=== PATIENT | male | born 1940 | race Caucasian/White ===

== ENCOUNTER 2021-03-15 07:25 | Inpatient (IN) | payer OTHER ==
[~2021-03-15] VITALS: Ht 188 cm; Wt 119.0 kg
[2021-03-15] MEDS ORDERED: ONDANSETRON 2MG/ML, 2ML ONE (07:45)
[2021-03-15] MEDS ORDERED: ONDANSETRON 2MG/ML, 2ML IVPush ONE (08:00)
[2021-03-15] MEDS ORDERED: SODIUM CHLORIDE 0.9% 1,000ML IVBOLUS ONE (08:00)
[2021-03-15] MEDS ORDERED: SODIUM CHLORIDE FLUSH 10ML SYR IVF ONE (08:00)
--- NOTE | 2021-03-15 08:15 | NUR ---
PT PROVIDED PO FLUIDS. NAD NOTED. LABS DRAWN. IVF INFUSING PER EMAR. SIDE RAILS UP. CALL LIGHT IN REACH.
[2021-03-15 08:21] LABS: BASOPHILS % (AUTO) 1 % (0-1); EOSINOPHILS % (AUTO) 2 % (1-7); LYMPHOCYTES % (AUTO) 27 % (22-44); MEAN CORPUSCULAR HGB CONC 33.7 g/dL (33.2-36.2); MEAN PLATELET VOLUME 9.1 fL (7.4-10.4); MONOCYTES % (AUTO) 7 % (2-9); NEUTROPHILS % (AUTO) 63 % (42-75); PLATELET COUNT 160 x10^3/uL (130-400); RED BLOOD COUNT 5.06 x10^6/uL (4.38-5.82); RED CELL DISTRIBUTION WIDTH 19.3 % (9.4-14.8)
[2021-03-15 08:22] LABS: ANION GAP 10 mmol/L (5-15); CALCIUM 9.3 mg/dL (8.5-10.1); CHLORIDE 95 mmol/L (98-107); CREATININE 1.81 mg/dL (0.7-1.3)
[2021-03-15 08:23] LABS: ALANINE AMINOTRANSFERASE 18 U/L (12-78)
[2021-03-15 08:25] LABS: ALKALINE PHOSPHATASE 94 U/L (45-117); BILIRUBIN,TOTAL 0.5 mg/dL (0.2-1.0)
--- NOTE | 2021-03-15 09:00 | NUR ---
RECEIVED REPORT FROM VIVIAN KOTHARI. PT RESTING ON GURNEY. NOTED TO DESAT WHEN SLEEPING TO 79% RA. PT AWAKENED AND O2 SATS MONITORED. PT STAYED AT 80% RA. PLACED ON 2L NC SATING 100%. ERP DR. ZIMMERMAN NOTIFIED.
--- NOTE | 2021-03-15 09:47 | NUR ---
PT RESTING ON GURNEY. NADN. CRUZ.
--- NOTE | 2021-03-15 09:49 | NUR ---
PT AWARE OF NEED FOR UA. AFTER MULTIPLE ATTEMPTS PT CANNOT PROVIDE UA SAMPLE. PER STATES HE IS INCONTINENT AND HAS NO CONTROL OVER WHEN HE GOES. PT EDUCATED ON STRIAGHT CATH FOR URINE SAMPLE. PT STATES "I AIN'T GETTING NO DAMN CATHETER". URINAL REMAINS W/ PT.
[2021-03-15 09:53] LABS: ACETONE, SERUM Small (20mg/dL) (Negative)
--- NOTE | 2021-03-15 10:36 | NUR ---
PT RESTING ON ROCIO. ROHAN. VSS. UA PROVIDED. UA COLLECTED, LABELED, AND SENT TO LAB. [facility] AT BEDSIDE FOR ADMISSION.
[2021-03-15 10:39] LABS: TROPONIN I < 0.015 ng/mL (0.000-0.045)
[2021-03-15 10:41] LABS: INTERNATIONAL NORMALIZED RATIO 1.05 (0.93-1.1); PROTHROMBIN TIME 11.2 Seconds (9.6-11.5)
[2021-03-15 10:44] LABS: MICROSCOPIC INDICATED
[2021-03-15] MEDS ORDERED: INSULIN LISPRO 100 UNITS/ML, PEN SQ-INSULIN SCH ×2 (11:00→21:00)
[2021-03-15] MEDS ORDERED: hydrALAzine 20 MG/ML, 1ML IVPush PRN (11:00)
[2021-03-15] MEDS ORDERED: LABETALOL 5MG/ML, 20ML IVPush PRN (11:00)
[2021-03-15] MEDS ORDERED: POLYETHYLENE GLYCOL 17 GM PACKET PO PRN (11:00)
[2021-03-15] MEDS ORDERED: ONDANSETRON ODT 4 MG PO PRN (11:00)
[2021-03-15] MEDS ORDERED: DOCUSATE 100 MG CAPSULE PO PRN (11:00)
[2021-03-15] MEDS ORDERED: DEXTROSE 4 GM TAB.CHEW PO PRN (11:00)
[2021-03-15] MEDS ORDERED: ONDANSETRON 2MG/ML, 2ML IVPush PRN (11:00)
[2021-03-15] MEDS ORDERED: morphine SULFATE 10 MG/ML, 1ML IVPush PRN (11:00)
[2021-03-15] MEDS ORDERED: BISACODYL 10 MG SUPP PR PRN (11:00)
[2021-03-15] MEDS ORDERED: ENALAPRILAT 1.25 MG/ML, 2ML IVPush PRN (11:00)
[2021-03-15] MEDS ORDERED: GLUCAGON 1 MG IM PRN (11:00)
[2021-03-15] MEDS ORDERED: SODIUM CHLORIDE 0.9% 1,000 ML IV SCH (11:00)
[2021-03-15] MEDS ORDERED: DEXTROSE 50%, 50ML SYRINGE IVPush PRN (11:00)
--- NOTE | 2021-03-15 11:05 | NUR ---
SPOKE W/ [facility] WHO STATES THEY CANNOT PERFORM THE DIAGNOSTIC V/Q SCAN IN IT'S ENTIRETY BUT THEY CAN PERFORM A PORTION OF THE EXAM SINCE PT IS CURRENTLY A COVID R/O. CALLED AND SPOKE W/ DR. LAGUNA AT [phone] AND NOTIFIED OF [facility] BEING UNABLE TO DO THE FULL V/Q SCAN SECONDARY TO THIS. PER [facility] FOR NOW DO THE BILAT DUPLEX FOR NOW. V/Q SCAN ONCE COVID RESULTS AND IF IT IS NEGATIVE.
[2021-03-15] MEDS ORDERED: APIX5TAB PO (11:36)
[2021-03-15] MEDS ORDERED: INSU100C5 SQ-INSULIN (11:36)
[2021-03-15] MEDS ORDERED: PREG300C PO (11:36)
[2021-03-15] MEDS ORDERED: FURO20TA3 PO (11:36)
[2021-03-15] MEDS ORDERED: SEMA1PEN3 SQ (11:36)
[2021-03-15] MEDS ORDERED: TRAM50TA2 PO (11:36)
[2021-03-15] MEDS ORDERED: SODIUM CHLORIDE 0.65% NAS (11:36)
[2021-03-15] MEDS ORDERED: INSU100V8 SQ (11:36)
[2021-03-15] MEDS ORDERED: ACET-76 PO (11:36)
--- NOTE | 2021-03-15 12:11 | NUR ---
PT RESTING ON GURNEY. NADN. CRUZ.
[2021-03-15] MEDS: CEFTRIAXONE 2 GM in DEXTROSE 5% 50 ML IVPB SCH (12:17)
[2021-03-15] MEDS: SODIUM CHLORIDE FLUSH 10ML SYR IVF SCH ×2 (12:18→21:26)
[2021-03-15] MEDS ORDERED: HEPARIN 5,000 UNITS/ML, 1ML SQ SCH (12:30)
[2021-03-15] MEDS ORDERED: FAMOTIDINE 20 MG TABLET ONE (12:33)
[2021-03-15] MEDS ORDERED: HEPARIN 5,000 UNITS/ML, 1ML ONE (12:34)
[2021-03-15] MEDS: FAMOTIDINE 20 MG TABLET PO SCH ×2 (12:36→21:26)
--- NOTE | 2021-03-15 12:43 | NUR ---
PT RESTING ON GURNEY. NADN. CRUZ.
[2021-03-15] MEDS ORDERED: FUROSEMIDE 40 MG/4 ML IV PRN (13:00)
[2021-03-15] MEDS ORDERED: INSULIN LISPRO SINGLE DOSE, ER SQ-INSULIN ONE (13:05)
--- NOTE | 2021-03-15 13:15 | NUR ---
PT MEDICATED PER SEP. PROVIDED W/ LUNCH TRAY.
--- NOTE | 2021-03-15 13:45 | NUR ---
HOSPITAL BED ORDERED FOR PT.
--- NOTE | 2021-03-15 14:01 | NUR ---
PT RESTING ON GURNEY. NADN. CRUZ.
--- NOTE | 2021-03-15 15:31 | NUR ---
PT MOVED FROM [facility] TO [facility] BED.
--- NOTE | 2021-03-15 16:12 | NUR ---
REPORT GIVEN TO [facility] RN. ALL QUESTIONS ANSWERED. AWAITING PT TRANSPORT.
[2021-03-15 16:41] VITALS: BP 130/69
[2021-03-15] MEDS ORDERED: INSULIN REGULAR 100 UNITS/ML, 3ML VIAL SQ-INSULIN SCH (17:30)
[2021-03-15] MEDS: INSULIN LISPRO 100 UNITS/ML, PEN SQ-INSULIN SCH ×2 (18:31→21:27)
[2021-03-15 20:13] VITALS: BP 150/79
[2021-03-15] MEDS: APIXABAN 5 MG TABLET PO SCH (21:26)
[2021-03-16] VITALS: BP 131/68
[2021-03-16] MEDS: TRAZODONE 50MG TABLET PO PRN (00:37)
[2021-03-16 06:07] LABS: ALANINE AMINOTRANSFERASE 17 U/L (12-78); ALBUMIN 2.6 g/dL (3.4-5.0); ANION GAP 8 mmol/L (5-15); CALCIUM 8.9 mg/dL (8.5-10.1); CHLORIDE 99 mmol/L (98-107)
[2021-03-16 06:09] LABS: ALKALINE PHOSPHATASE 84 U/L (45-117); BILIRUBIN,TOTAL 0.5 mg/dL (0.2-1.0); CREATININE 1.58 mg/dL (0.7-1.3); TOTAL PROTEIN 8.3 g/dL (6.4-8.2)
[2021-03-16 07:10] VITALS: BP 117/77
[2021-03-16] MEDS ORDERED: INSULIN GLARGINE 100 UNITS/ML, PEN SQ-INSULIN SCH ×2 (07:30)
[2021-03-16] MEDS: ACETAMINOPHEN 325 MG TABLET PO PRN ×2 (07:49→16:28)
[2021-03-16] MEDS: APIXABAN 5 MG TABLET PO SCH ×2 (07:49→20:30)
[2021-03-16] MEDS: FAMOTIDINE 20 MG TABLET PO SCH (07:49)
[2021-03-16] MEDS: INSULIN LISPRO 100 UNITS/ML, PEN SQ-INSULIN SCH ×4 (07:50→20:31)
[2021-03-16] MEDS: SODIUM CHLORIDE FLUSH 10ML SYR IVF SCH ×2 (07:51→21:00)
[2021-03-16] MEDS: SENNA/DOCUSATE TABLET PO SCH (07:53)
[2021-03-16] MEDS: SODIUM CHLORIDE 0.9% 1,000 ML IV SCH ×2 (10:56→19:00)
[2021-03-16] MEDS: CEFTRIAXONE 2 GM in DEXTROSE 5% 50 ML IVPB SCH (10:56)
[2021-03-16 12:39] VITALS: BP 127/68
[2021-03-16 19:44] VITALS: BP 117/63
[2021-03-16 19:51] VITALS: BP 125/64
[2021-03-17 00:32] VITALS: BP 133/64
[2021-03-17] MEDS: SODIUM CHLORIDE 0.9% 1,000 ML IV SCH ×3 (03:00→18:27)
[2021-03-17] MEDS ORDERED: INSULIN GLARGINE 100 UNITS/ML, PEN SQ-INSULIN SCH (07:30)
[2021-03-17 07:36] LABS: CALCIUM 8.9 mg/dL (8.5-10.1); CHLORIDE 103 mmol/L (98-107); CREATININE 1.55 mg/dL (0.7-1.3)
[2021-03-17 07:38] LABS: ANION GAP 7 mmol/L (5-15)
[2021-03-17] MEDS: INSULIN LISPRO 100 UNITS/ML, PEN SQ-INSULIN SCH ×4 (07:54→20:09)
[2021-03-17] MEDS: INSULIN GLARGINE 100 UNITS/ML, PEN SQ-INSULIN SCH (07:54)
[2021-03-17] MEDS: APIXABAN 5 MG TABLET PO SCH ×2 (07:55→20:08)
[2021-03-17] MEDS: SODIUM CHLORIDE FLUSH 10ML SYR IVF SCH ×2 (07:55→21:00)
[2021-03-17] MEDS: FAMOTIDINE 20 MG TABLET PO SCH (07:55)
[2021-03-17] MEDS: SENNA/DOCUSATE TABLET PO SCH (07:56)
[2021-03-17 08:00] VITALS: BP 125/63
[2021-03-17] MEDS: ACETAMINOPHEN 325 MG TABLET PO PRN (09:14)
[2021-03-17] MEDS: CEFTRIAXONE 2 GM in DEXTROSE 5% 50 ML IVPB SCH (11:53)
[2021-03-17 13:52] VITALS: BP 143/73
[2021-03-17] MEDS ORDERED: LOPERAMIDE 2 MG CAPSULE PO PRN (17:30)
[2021-03-17 19:00] VITALS: BP 132/60
[2021-03-17] MEDS: HYDROcodone/APAP 5/325 TABLET PO PRN (20:08)
[2021-03-18 00:23] VITALS: BP 144/75
[2021-03-18] MEDS: SODIUM CHLORIDE 0.9% 1,000 ML IV SCH (03:00)
[2021-03-18] MEDS: HYDROcodone/APAP 5/325 TABLET PO PRN ×3 (05:16→21:44)
[2021-03-18] MEDS: INSULIN LISPRO 100 UNITS/ML, PEN SQ-INSULIN SCH ×4 (07:00→21:43)
[2021-03-18 07:13] LABS: ANION GAP 5 mmol/L (5-15); CALCIUM 8.3 mg/dL (8.5-10.1); CHLORIDE 106 mmol/L (98-107); CREATININE 1.24 mg/dL (0.7-1.3)
[2021-03-18] MEDS: CEFDINIR 300 MG CAPSULE PO SCH ×2 (08:04→21:43)
[2021-03-18] MEDS: ACETAMINOPHEN 325 MG TABLET PO PRN (08:04)
[2021-03-18] MEDS: FAMOTIDINE 20 MG TABLET PO SCH ×2 (08:05→21:43)
[2021-03-18] MEDS: INSULIN GLARGINE 100 UNITS/ML, PEN SQ-INSULIN SCH (08:05)
[2021-03-18] MEDS: APIXABAN 5 MG TABLET PO SCH ×2 (08:05→21:43)
[2021-03-18] MEDS: SENNA/DOCUSATE TABLET PO SCH (08:06)
[2021-03-18] MEDS: SODIUM CHLORIDE FLUSH 10ML SYR IVF SCH ×2 (08:09→21:43)
[2021-03-18 08:59] VITALS: BP 121/69
[2021-03-18 13:12] VITALS: BP 154/78
[2021-03-18 19:27] VITALS: BP 145/76
[2021-03-18] MEDS: TRAZODONE 50MG TABLET PO PRN (21:43)
[2021-03-19 00:33] VITALS: BP 149/73
[2021-03-19] MEDS: HYDROcodone/APAP 5/325 TABLET PO PRN ×4 (00:49→20:13)
[2021-03-19 08:55] LABS: ANION GAP 8 mmol/L (5-15); CALCIUM 8.8 mg/dL (8.5-10.1); CHLORIDE 105 mmol/L (98-107); CREATININE 1.39 mg/dL (0.7-1.3)
[2021-03-19] MEDS: SENNA/DOCUSATE TABLET PO SCH (09:00)
[2021-03-19] MEDS: INSULIN LISPRO 100 UNITS/ML, PEN SQ-INSULIN SCH ×4 (09:12→20:13)
[2021-03-19] MEDS: APIXABAN 5 MG TABLET PO SCH ×2 (09:13→20:13)
[2021-03-19] MEDS: CEFDINIR 300 MG CAPSULE PO SCH ×2 (09:13→20:13)
[2021-03-19] MEDS: INSULIN GLARGINE 100 UNITS/ML, PEN SQ-INSULIN SCH ×2 (09:13→20:15)
[2021-03-19] MEDS: FAMOTIDINE 20 MG TABLET PO SCH ×2 (09:13→20:13)
[2021-03-19] MEDS: SODIUM CHLORIDE FLUSH 10ML SYR IVF SCH ×2 (09:14→20:15)
[2021-03-19 09:22] VITALS: BP 141/68
[2021-03-19] MEDS ORDERED: INSULIN LISPRO 100 UNIT/ML, 3ML VIAL SQ-INSULIN SCH (11:00)
[2021-03-19 12:56] VITALS: BP 144/66
[2021-03-19] MEDS: INSULIN LISPRO 100 UNIT/ML, 3ML VIAL SQ-INSULIN SCH (16:00)
[2021-03-19 18:58] VITALS: BP 110/62
[2021-03-20 01:05] VITALS: BP 132/79
[2021-03-20] MEDS: HYDROcodone/APAP 5/325 TABLET PO PRN ×2 (01:14→05:34)
[2021-03-20] MEDS: INSULIN LISPRO 100 UNIT/ML, 3ML VIAL SQ-INSULIN SCH ×2 (07:00→11:00)
[2021-03-20] MEDS ORDERED: INSU100C5 SQ-INSULIN (07:15)
[2021-03-20] MEDS ORDERED: INSU100I13 SQ-INSULIN (07:15)
[2021-03-20] MEDS ORDERED: INSU100I18 SC (07:15)
[2021-03-20] MEDS ORDERED: BLOO-1267 SQ-INSULIN (07:18)
[2021-03-20 07:56] LABS: ANION GAP 7 mmol/L (5-15); CALCIUM 9.1 mg/dL (8.5-10.1); CHLORIDE 106 mmol/L (98-107)
[2021-03-20 07:58] LABS: CREATININE 1.31 mg/dL (0.7-1.3)
[2021-03-20 08:03] VITALS: BP 138/62
[2021-03-20] MEDS: FAMOTIDINE 20 MG TABLET PO SCH (08:31)
[2021-03-20] MEDS: APIXABAN 5 MG TABLET PO SCH (08:31)
[2021-03-20] MEDS: CEFDINIR 300 MG CAPSULE PO SCH (08:31)
[2021-03-20] MEDS: INSULIN LISPRO 100 UNITS/ML, PEN SQ-INSULIN SCH ×2 (08:32→11:00)
[2021-03-20] MEDS: SODIUM CHLORIDE FLUSH 10ML SYR IVF SCH (08:33)
[2021-03-20] MEDS: INSULIN GLARGINE 100 UNITS/ML, PEN SQ-INSULIN SCH (08:33)
[2021-03-20] MEDS: SENNA/DOCUSATE TABLET PO SCH (08:34)
[2021-03-20 14:30] VITALS: BP 145/65
== END 2021-03-20 14:59 | disposition home or self-care (01) | DRG 637 ==
LOC: ED 08:07 → EDIP 10:23 → 4WST 16:29
PROVIDERS: ADMIT Emergency Medicine; ATTEND Family Medicine
DX: E11.65 Type 2 diabetes mellitus with hyperglycemia (principal); J96.01 Acute respiratory failure with hypoxia; N17.9 Acute kidney failure, unspecified; E87.1 Hypo-osmolality and hyponatremia; I48.20 Chronic atrial fibrillation, unspecified; N39.0 Urinary tract infection, site not specified; E86.0 Dehydration; I10 Essential (primary) hypertension; Z20.822 Contact with and (suspected) exposure to COVID-19; Z79.01 Long term (current) use of anticoagulants; Z79.4 Long term (current) use of insulin; Z85.46 Personal history of malignant neoplasm of prostate; Z86.16 Personal history of COVID-19
CPT/HCPCS: 36415; 71045; 80048; 80053; 81001; 82010; 82962; 83880; 84484; 85025; 85610; 87077; 87086; 87186; 93005; 93970; 96374; 99285; G0378; J0696; J1644; J2405; U0005; J1815; J7030; U0003